=== PATIENT | female | born 1975 | race Caucasian/White ===

== ENCOUNTER 2017-01-22 22:11 | Emergency (ER) | payer BC ==
--- NOTE | 2017-01-25 04:09 | ER ---
ADMIT: 01/22/2017 RM/LOC: ER [facility] MR#: [id number] [address] [id number] [place] [address] [place] [address] Emergency Room Report SEX: F AGE: 41 : 1975 DATE: 01/22/2017 ADDENDUM: See T-sheet for complete H and P. A 41-year-old female, who comes in complaining of some pain in her right posterior and medial thigh. This began several hours ago. She has no history of DVT or PE and does sit for long periods of time at her job. She has no recent travel. No injury to her lower extremities. She denies any chest pain or shortness of breath. Physical exam reveals some tenderness on her medial posterior thigh, but there are no skin changes. I do not feel any cords, and her calves are nontender. Ultrasound of her lower extremity was done which is negative for DVT. The patient is discharged home in stable condition with a diagnosis of right leg pain, to return for any concerning symptoms. Otherwise, follow up with Dr. Preciado as needed. Jesus Albrecht MD/ alexis JOB #: [id number] CC: Jesus Albrecht MD, Attending Physician Julienne Preciado MD, Family Physician
== END 2017-01-23 00:40 | disposition home or self-care (01) ==
LOC: ER 22:11
DX: M79.651 Pain in right thigh (principal); E03.9 Hypothyroidism, unspecified; F17.210 Nicotine dependence, cigarettes, uncomplicated; Z88.2 Allergy status to sulfonamides; Z79.899 Other long term (current) drug therapy

== ENCOUNTER → 2017-02-05 | Outpatient (CLI) | payer BC | END | disposition home or self-care (01) | LOC: RAD.S 01-27 15:40 | DX: Z12.31 Encounter for screening mammogram for malignant neoplasm of breast (principal) ==